=== PATIENT | female | born 1990 | race Caucasian/White ===

== ENCOUNTER 2021-03-01 20:03 | Emergency (ER) | payer SELFPAY ==
[~2021-03-01] VITALS: Ht 167.7 cm; Wt 59.7 kg
[2021-03-01] MEDS ORDERED: DOXY100C2 PO (20:26)
--- NOTE | 2021-03-01 20:26 | ED Integumentary General ---
General Chief Complaint: Skin/Wound Problems Stated Complaint: R ARM INSECT BITE Source: patient Exam Limitations: no limitations History of Present Illness Date Seen by Provider: March 01, 2021 Time Seen by Provider: 20:24 Initial Comments Abscess to the ulnar side proximal aspect forearm on the right. Present for a few days swelling getting worse. No fevers or chills. No known cause. Timing/Duration: just prior to arrival, getting worse Severity: moderate Associated Symptoms: denies symptoms Allergies and Home Medications Allergies Coded Allergies: No Known Drug Allergies (Unverified , 07/10/11) Home Medications Doxycycline Hyclate 100 Mg Capsule, 100 MG PO BID Prescribed by: CATRACHO HUNT on 03/01/212025 Patient Home Medication List Home Medication List Reviewed: Yes Review of Systems Review of Systems Constitutional: see HPI; No chills EENTM: see HPI Respiratory: no symptoms reported Cardiovascular: no symptoms reported Genitourinary: no symptoms reported Musculoskeletal: no symptoms reported Skin: see HPI Psychiatric/Neurological: No Symptoms Reported Physical Exam Vital Signs Capillary Refill : General Appearance: WD/WN, no apparent distress HEENT: PERRL/EOMI, normal ENT inspection Neck: non-tender, full range of motion Respiratory: no respiratory distress, no accessory muscle use Neurologic/Psychiatric: alert, normal mood/affect, oriented x 3 Skin: normal color, warm/dry Skin Problem Location: upper extremities Skin Problem Character: abscess Procedures/Interventions I&D : Blade Size: 11 Progress Anesthetized locally with 0.25 mL of 1% lidocaine without epinephrine. Small incision made with 11 blade scalpel. Small amount of purulent material expressed. Culture collected and sent to lab. Covered with a Band-Aid. Progress/Results/Core Measures Results/Orders My Orders Orders - CATRACHO HUNT APRN Rx-Hydrocodone/Apap 5-325 Mg (Rx-Vicodin (03/01/21 20:30) Ceftriaxone For Im Use (Rocephin For Im (03/01/21 20:30) Lidocaine 1% Inj 20 Ml (Xylocaine 1% Inj (03/01/21 20:30) Dexamethasone Injection (Decadron Inje (03/01/21 20:30) Wound Culture (03/01/21 20:20) Departure Impression Primary Impression: Abscess Disposition: 01 HOME, SELF-CARE Condition: Stable Departure-Patient Inst. Decision time for Depature: 20:24 Referrals: NO,LOCAL PHYSICIAN (PCP/Family) Primary Care Physician Patient Instructions: Skin Abscess Add. Discharge Instructions: 1. Warm compresses to the area. Return to ER for any concerns. Antibiotics as directed. All discharge instructions reviewed with patient and/or family. Voiced understanding. Scripts Doxycycline Hyclate (Doxycycline Hyclate) 100 Mg Capsule 100 MG PO BID, #14 CAP Prov: CATRACHO HUNT APRN 03/01/21 CATRACHO HUNT APRN March 01, 2021 20:26
[2021-03-01] MEDS ORDERED: cefTRIAXone 1,000 MG/2.86 ml vial (IM ONLY) IM SCH (20:30)
[2021-03-01] MEDS ORDERED: LIDOCAINE 1% INJ 20 ML 20 ML VIAL INJ ONE (20:30)
[2021-03-02 03:30] VITALS: BP 123/88
== END 2021-03-01 20:51 | disposition home or self-care (01) ==
LOC: EDUNIT# 20:03 → ER 20:06
DX: L02.413 Cutaneous abscess of right upper limb (principal)
CPT/HCPCS: 87070; 87205; 99284

== ENCOUNTER 2022-12-08 06:02 | Inpatient (IN) | payer MEDICAID ==
[2022-12-08] VITALS (39 sets, daily range): BP systolic 61–136; BP diastolic 38–80
[~2022-12-08] VITALS: Ht 170.2 cm; Wt 82.1 kg
[~2022-12-08 06:02] MED LIST: DOXY100C5 PO
[2022-12-08 08:15] LABS: BASOPHILS % (AUTO) 0 % (0-10); EOSINOPHILS # (AUTO) 0.2 10^3/uL (0.0-0.3); EOSINOPHILS % (AUTO) 2 % (0-10); HEMATOCRIT 34 % (35-52); LYMPHOCYTES # (AUTO) 1.6 10^3/uL (1.0-4.0); LYMPHOCYTES % (AUTO) 17 % (12-44); MEAN CORPUSCULAR HEMOGLOBIN 31 pg (25-34); MEAN CORPUSCULAR HGB CONC 35 g/dL (32-36); MEAN CORPUSCULAR VOLUME 90 fL (80-99); MONOCYTES % (AUTO) 10 % (0-12); NEUTROPHILS # (AUTO) 6.8 10^3/uL (1.8-7.8); NEUTROPHILS % (AUTO) 70 % (42-75); PLATELET COUNT 287 10^3/uL (130-400); WHITE BLOOD COUNT 9.8 10^3/uL (4.3-11.0)
[2022-12-08] MEDS ORDERED: MINERAL OIL 30 ML UDC TOP PRN (08:15)
[2022-12-08] MEDS ORDERED: OXYTOCIN PRE-MIX DRIP 500 ML IV SCH ×2 (08:15→12:15)
--- NOTE | 2022-12-08 08:19 | History & Physical-OB ---
OB - Chief Complaint & HPI Date/Time Date of Admission: Date of Admission: Dec 08, 2022 at 06:02 Date seen by a Provider: Dec 08, 2022 Time Seen by a Provider: 07:50 Chief Complaint/History OB-Reason for Admission/Chief: Induction of Labor Hx : 2 Hx Para: 1 Expected Date of Delivery: Dec 14, 2022 Gestational Age in Weeks: 39 Gestational Age in Days: 1 Indication for induction: maternal distance History of Labs A+, antibody neg, RI. HIV, HepB, RPR NR. GC/chlamydia neg. 1 hour glucola nml. GBS neg. Hep C antibody and viral load positive. Allergies and Home Medications Allergies Coded Allergies: No Known Drug Allergies (Unverified , 07/10/11) Patient Home Medication List Home Medication List Reviewed: Yes Vit No.124/Iron/FA ( Vitamin Tablet) 27 Mg Iron-800 Mcg Tablet, 1 EACH PO DAILY, (Reported) Entered as Reported by: MADDIE WANG on 12/08/22826 Last Action: New Order Discontinued Medications Doxycycline Hyclate (Doxycycline Hyclate) 100 Mg Capsule, 100 MG PO BID Prescribed by: CATRACHO HUNT on 03/01/212025 Last Action: Discontinued OB - History Hx of Present Ultrasounds: Normal mid trimester US Medical Complications: Other (Chronic hep C diagnosed in ) Obstetrical History Hx : 2 Hx Para: 1 Hx # Term Pregnancies: 1 Hx # Pregnancies: 0 Number of Living Children: 1 Hx Termination: No Hx Multiple Gestation: No Hx Ectopic : No Hx Complication: No Hx Induced Hypertens: No Hx Maternal Gestational Diabet: No Hx Hemorrhage: No Delivery History Hx Dystocia: No Hx Forceps Assisted Delivery: No Hx Vacuum Extraction Assisted: No Hx Placenta Abnormality: No Hx Distress: No Hx Large For Gestational Age I: No Hx Small for Gestational Age I: No Hx Section: No Hx Vaginal Delivery Post C-Sec: No Hx Blood Disorders: No Adverse Rxn to Tranfusion: No Patient Past Medical History PMHx: Chronic Hep C SurgHx: Denies Social History/Family History Alcohol Use: Denies Use Recreational Drug Use: No Smoking Cessation: Former smoker Immunizations Rubella: immune RPR/VDRL: Negative GBS Status: Negative HBsAG: Negative OB - Admission Exam Physical Exam HEENT: NCAT Abdomen: Non tender Extremities: Normal Cervical Dilatation: other (1.5) Effacement: 25% Station: -3 Membranes: Intact Heart Rate: 140's Accelerations: Accelerations Present Decelerations: No Decelerations Short Term Variability: Present Board Layer Variability: Average (6-25) Contractions on Admission: None Martinez Scoring Tool (Modified) Dilation (cm): 1-2cm (1) Effacement (%): 0-30% (0) Descent/Station: -3 (0) Cervix Consistency: Medium(1) Cervix Position: Anterior (2) Add 1 point for: Each previous vaginal delivery (1) Martinez Score: 5 OB - Assessment/Plan/Diagnosis Assessment Admission Dx Term intrauterine at 39 weeks gestation Induction of labor planned Chronic Hep C GBS negative Admission Status: Inpatient Order (span 2 midnights) Reason for Inpatient Admission: Labor, delivery and course Plan Plan: Induction Induction Method: per Misoprostol Protocol Reason for Induction: Pt requests induction due to distance from hospital w/ unreliable transport MADDIE WANG MD Dec 08, 2022 08:19
[2022-12-08] MEDS ORDERED: PREN-142 PO (08:27)
[2022-12-08] MEDS: D5 LR IV SOLUTION 1,000 ML IV SCH ×2 (08:40→17:11)
[2022-12-08] MEDS ORDERED: CATHETER FLUSH 10 ML SYR IV SCH ×2 (14:00→22:00)
[2022-12-08] MEDS ORDERED: fentaNYL 2 mcg/ml BUPIVA 0.125 100 ML ONE (19:07)
[2022-12-08] MEDS ORDERED: BUPIVACAINE 0.25% 10 ML (SENSORCAINE) VIAL ONE (19:14)
[2022-12-08] MEDS ORDERED: fentaNYL INJ 100 MCG/2 ML AMP ONE ×2 (19:14→20:36)
[2022-12-08] MEDS ORDERED: diphenhydrAMINE 50 MG/ML INJ (BENADRYL) IV PRN (19:15)
[2022-12-08] MEDS ORDERED: fentaNYL 2 mcg/ml BUPIVA 0.125 100 ML EPI SCH (19:15)
[2022-12-08] MEDS ORDERED: LACTATED RINGERS 1,000 ML IV SCH (19:15)
[2022-12-08] MEDS ORDERED: NALOXONE 0.4 MG/ML 1 ML (NARCAN) VIAL IV PRN ×2 (19:15→21:30)
[2022-12-08] MEDS ORDERED: ONDANSETRON 4 MG/2 ML (SDV) Z0FRAN IV PRN (19:15)
[2022-12-08] MEDS ORDERED: METOCLOPRAMIDE INJ 10 MG/2 ML (REGLAN) ONE (20:23)
[2022-12-08] MEDS ORDERED: NS (IVPB) 50 ML ONE (20:23)
[2022-12-08] MEDS ORDERED: FAMOTIDINE 20MG/2ML IV (PEPCID) ONE (20:23)
[2022-12-08] MEDS ORDERED: ceFAZolin INJECTION 2,000 MG ONE (20:23)
[2022-12-08] MEDS ORDERED: OXYTOCIN PRE-MIX DRIP 500 ML IV ONE ×2 (20:33→21:07)
[2022-12-08] MEDS ORDERED: HYDROmorphone 2 MG/ML VIAL (DILAUDID) ONE (20:34)
[2022-12-08] MEDS ORDERED: KETAMINE HCL 100 MG/ML 5 ML VIAL ONE (20:39)
[2022-12-08] MEDS ORDERED: MIDAZOLAM 2 MG/2 ML (VERSED) VIAL ONE (20:40)
[2022-12-08] MEDS ORDERED: BUPIVACAINE 0.5% 30 ML (SENSORCAINE) VIAL ONE ×2 (20:41→20:42)
--- NOTE | 2022-12-08 21:07 | Diagnostic Imaging Report ---
INDICATION: Rule out foreign body FINDINGS: No radiopaque foreign body. IMPRESSION: No opaque foreign body Dictated by: Dictated on workstation # [id number]
--- NOTE | 2022-12-08 21:18 | Labor Progress Note ---
Labor Progress Note Labor Progress Note Date Seen by Provider: Dec 08, 2022 Time Seen by Provider: 08:20 Subjective: Received call at 0812, about 10-15 minutes after epidural, maternal low BP occurred, and several minutes after that heart tones went down to 60s and not recovering in spite of fluids, ephedrine, position change and oxygen. Called Dr. Montilla for STAT and headed immediately to hospital. Assessment/Plan: Rosangela Villavicencio is a 32 /Para 2 / 1,Gestational Age (wks)39 here for induction of labor. Consult First Press Operator for STAT for extended bradycardia. Vitals - Labs Vital Signs - I&O Vital Signs Date Time Temp Pulse Resp B/P (MAP) Pulse Ox O2 Delivery O2 Flow Rate FiO2 12/08/22 18:55 92 20 121/73 (89) Room Air 12/08/22 18:40 96 20 126/67 (86) Room Air 12/08/22 18:25 95 20 112/64 (80) Room Air 12/08/22 18:11 86 20 116/66 (83) Room Air 12/08/22 17:55 83 20 119/57 (77) Room Air 12/08/22 17:45 93 20 118/61 (80) Room Air 12/08/22 17:30 83 20 128/74 (92) Room Air 12/08/22 17:15 36.3 83 20 132/67 (88) Room Air 12/08/22 15:05 36.6 81 20 117/72 (87) Room Air 12/08/22 14:05 78 20 103/64 (77) Room Air 12/08/22 12:53 36.5 84 20 118/63 (81) Room Air 12/08/22 11:28 36.4 75 20 113/68 (83) Room Air 12/08/22 10:35 81 20 122/58 (79) Room Air 12/08/22 09:40 81 20 136/80 (98) Room Air 12/08/22 08:20 36.9 82 20 98 Room Air Labs Laboratory Tests 12/08/22 07:50: White Blood Count 9.8, Red Blood Count 3.83, Hemoglobin 12.0, Hematocrit 34L, Mean Corpuscular Volume 90, Mean Corpuscular Hemoglobin 31, Mean Corpuscular Hemoglobin Concent 35, Red Cell Distribution Width 12.1, Platelet Count 287, Mean Platelet Volume 10.0, Immature Granulocyte % (Auto) 1, Neutrophils (%) (Auto) 70, Lymphocytes (%) (Auto) 17, Monocytes (%) (Auto) 10, Eosinophils (%) (Auto) 2, Basophils (%) (Auto) 0, Neutrophils # (Auto) 6.8, Lymphocytes # (Auto) 1.6, Monocytes # (Auto) 1.0, Eosinophils # (Auto) 0.2, Basophils # (Auto) 0.0, Immature Granulocyte # (Auto) 0.1 MADDIE WANG MD Dec 08, 2022 21:18
--- NOTE | 2022-12-08 21:19 | Discharge Inst-Women's Service ---
Discharge Inst-Women's Serv Depart Medication/Instructions New, Converted or Re-Newed RX: Transmitted to Pharmacy Final Diagnosis POD 2 PLTCS Problems Reviewed?: Yes Consults/Follow Up Additional Follow Up: Yes Orders/Referrals Dr. Montilla in 7-[address] Pickens in 6 weeks Activity Activity: Activity as Tolerated Driving Instructions: No Driving for 1 Week NO SMOKING: NO SMOKING Nothing Inside Vagina: No Douching, No Leigh, No Tampons Diet Discharge Diet: No Restrictions Symptoms to Report to : Bleeding Excessive, Pain Increased, Fever Over 101 Degrees F, Vaginal Bleeding Increase, Questions/Concerns For Any Problems or Questions: Contact Your Physician Skin/Wound Care Infection Signs and Symptoms: Increased Redness, Foul Odor of Wound, Increased Drainage, Skin Itchy or Has a Rash, Increased Swelling, Temperature Above 101 F Operative Area Clean and Dry: Keep Incision Clean/Dry Stitches/Brittany/Dermabond: Dermabond, Care of Stitches Bathing Instructions: ELYSIA Farr DO Dec 08, 2022 21:19
[2022-12-08] MEDS ORDERED: DOCU100C37 PO (21:20)
[2022-12-08] MEDS ORDERED: ACHD5005 PO (21:20)
[2022-12-08] MEDS ORDERED: IBUP-844 PO (21:20)
[2022-12-08] MEDS ORDERED: TETANUS,DIPTH,PERTUSS P/F (BOOSTRIX) 0.5 ML VIAL IM SCH (21:30)
[2022-12-08] MEDS ORDERED: ONDANSETRON 4 MG/2 ML (SDV) Z0FRAN IVP PRN (21:30)
[2022-12-08] MEDS ORDERED: MEASLES,MUMPS,RUBELLA 1 EA INJ SC SCH (21:30)
[2022-12-08] MEDS: OXYTOCIN PRE-MIX DRIP 500 ML IV SCH (23:00)
[2022-12-08] MEDS: KETOROLAC 30 MG/ML VIAL IV SCH (23:02)
[2022-12-09] MEDS: HYDROcodone/APAP 5 MG/325 MG (LORTAB) TAB PO PRN ×4 (01:07→20:04)
[2022-12-09] MEDS ORDERED: LACTATED RINGERS 1,000 ML IV PRN (02:15)
[2022-12-09] MEDS ORDERED: FAMOTIDINE 20MG/2ML IV (PEPCID) IV ONE (02:15)
[2022-12-09] MEDS ORDERED: METOCLOPRAMIDE INJ 10 MG/2 ML (REGLAN) IV ONE (02:15)
--- NOTE | 2022-12-09 02:32 | OPERATIVE REPORT ---
PREOPERATIVE DIAGNOSES: 1. A 32-year-old at 39 weeks and 1 day gestation. 2. Acute distress. 3. Prolonged bradycardia. POSTOPERATIVE DIAGNOSES: 1. A 32-year-old at 39 weeks and 1 day gestation. 2. Acute distress. 3. Prolonged bradycardia. PROCEDURE: Emergency stat section. SURGEON: ePter Albrecht DO ANESTHESIA: Epidural with mid procedure bolus. ESTIMATED BLOOD LOSS: 600 mL. URINE OUTPUT: 100 mL clear at the end of the procedure. FLUIDS: 1500 mL lactated Ringer's solution. FINDINGS: A live male infant weighing 7 pounds 10 ounces, Apgars of 7 and 8. Grossly normal appearing uterus, bilateral fallopian tubes and ovaries. SPECIMEN SENT: Placenta and cord. INDICATIONS FOR PROCEDURE: This 32-year-old female is a patient who had sought her care with [facility]. I was contacted emergently by Dr. Pickens needing a stat , heart rate had been in the 60s for greater than 5 minutes. Upon my arrival to the hospital, the patient was on the operating room table in the suite with heart rate still in the 50s to 60s. She was rapidly prepped and draped. Anesthesia was not present; however, did have epidural access and she had good pain control; therefore, we proceeded with remainder of the procedure due to the urgency of the situation without a preoperative count. Once she was draped, anesthesia was tested using an Allis clamp and I proceeded with a Pfannenstiel skin incision with a knife and carried to underlying fascia using the knife. The fascial incision extended laterally using blunt traction. The rectus muscles were dissected down the midline using blunt traction, which allowed me to enter the peritoneum, which I entered using blunt traction and extended using blunt traction. I then identified the lower uterine segment and make a low transverse incision through this using a knife until membranes were encountered, at which point I extended the uterine incision with blunt traction. I then elevated the infant's head up to the incision where with gentle fundal pressure, the 's head was elevated up to the incision where the nares and oropharynx were bulb suctioned. Anterior and posterior shoulders were delivered. The was brought to the operative field where the cord was doubly clamped and cut and was handed off to Dr. Pickens who was present for delivery. Cord blood was collected. A 3-vessel cord with intact placenta was delivered spontaneously thereafter. IV Pitocin was initiated to facilitate uterine contraction. At this point, we hold pressure on bleeding from the uterine incision and proceeded with setting up our retraction using an Micah ring retractor within the peritoneal incision, which offers excellent lateral sidewall retraction. I then proceeded with the case as I typically would by closing the uterus using 0 Vicryl suture in a running locked fashion, second layer of imbricating 0 Monocryl was placed. Excellent hemostasis was noted after doing this. At this point, anesthesia arrived and administers more epidural analgesia and IV narcotic pain medication. I then closed the uterus second layer using 0 Monocryl in a running imbricating stitch. The uterus was then placed back within the pelvis and the uterus was copiously irrigated and the pelvis was copiously irrigated the pelvis using normal saline. There was no active bleeding noted from any of my dissection planes. I removed the Micah retractor and placed Interceed over my planes of dissection to prevent postoperative adhesions. I then proceeded with closing the peritoneum using 3-0 Vicryl suture in a running fashion. Rectus muscles were reapproximated using 3-0 Vicryl suture in interrupted fashion. The fascia was reapproximated using 0 Vicryl suture in a running fashion, at which point flat plate x-ray was performed. There was no retained sponges noted on x-ray. I then proceeded with closing the skin using 4-0 Monocryl subcuticular. Dermabond was applied to incision, sterile dressing with adhesive white tape. The patient tolerated the procedure well and was taken to recovery in stable condition. Lap and sponge counts were correct at the end of the procedure. Instrument counts correct as well. Two grams of Ancef were given intraoperatively for infection prophylaxis. Job ID: [id number] DocumentID: [id number] Dictated Date: 12/08/2022 21:15:25 Parts Runner Date: 12/09/2022 02:31:00 Dictated By: PETER ALBRECHT DO
[2022-12-09 03:24] VITALS: BP 113/59
[2022-12-09] MEDS: OXYTOCIN PRE-MIX DRIP 500 ML IV SCH (03:25)
[2022-12-09] MEDS: KETOROLAC 30 MG/ML VIAL IV SCH ×3 (04:02→16:35)
[2022-12-09 04:40] LABS: BASOPHILS % (AUTO) 0 % (0-10); EOSINOPHILS # (AUTO) 0.1 10^3/uL (0.0-0.3); EOSINOPHILS % (AUTO) 1 % (0-10); HEMATOCRIT 30 % (35-52); HEMOGLOBIN 10.2 g/dL (11.5-16.0); LYMPHOCYTES # (AUTO) 1.5 10^3/uL (1.0-4.0); LYMPHOCYTES % (AUTO) 12 % (12-44); MEAN CORPUSCULAR HEMOGLOBIN 31 pg (25-34); MEAN CORPUSCULAR HGB CONC 34 g/dL (32-36); MEAN CORPUSCULAR VOLUME 91 fL (80-99); MONOCYTES # (AUTO) 0.8 10^3/uL (0.0-1.0); MONOCYTES % (AUTO) 6 % (0-12); NEUTROPHILS # (AUTO) 10.3 10^3/uL (1.8-7.8); NEUTROPHILS % (AUTO) 80 % (42-75); PLATELET COUNT 226 10^3/uL (130-400); WHITE BLOOD COUNT 12.8 10^3/uL (4.3-11.0)
--- NOTE | 2022-12-09 07:01 | Postpartum Progress Note ---
Note Note Day # 1 Subjective: Patient is without complaints. Ambulating, voiding. Tolerating a regular diet without nausea or vomiting. Normal lochia. Pain is well controlled with oral pain medications. Breast feeding. Objective: Sitting in bed at time of evaluation, no signs of distress. Physical Exam: General - Alert and oriented, no apparent distress Abdomen - Soft, appropriately tender to palpation, non-distended, fundus firm at umbilicus Extremities - no edema, negative Quinten's bilaterally Incision c/d/i Assessment: POD 1, s/p emergency Acute blood loss anemia Plan: Routine care. Encourage breast feeding. Encourage ambulation. Ferrous sulfate supplementation. Plan for discharge tomorrow. Vitals - Labs Vital Signs - I&O Vital Signs Date Time Temp Pulse Resp B/P (MAP) Pulse Ox O2 Delivery O2 Flow Rate FiO2 12/09/22 03:24 36.6 86 22 113/59 (77) 98 Room Air 12/08/22 23:13 37.0 91 18 119/60 (79) 99 Room Air 12/08/22 22:38 Room Air 12/08/22 22:15 35.8 12 97/53 (68) 97 Room Air 12/08/22 22:15 Room Air 12/08/22 22:00 Room Air 12/08/22 22:00 36.0 12 100/49 (66) 96 Room Air 12/08/22 21:45 Room Air 12/08/22 21:45 35.5 16 94/57 (69) 98 Room Air 12/08/22 21:30 36.2 21 94/52 (66) 95 Room Air 12/08/22 21:30 Room Air 12/08/22 21:15 Room Air 12/08/22 21:15 36.3 22 82/41 (55) 95 Room Air 12/08/22 20:20 79 116/69 (85) 100 Room Air 12/08/22 20:16 74 101/53 (69) Room Air 12/08/22 20:15 85 102/55 (71) 100 Room Air 12/08/22 20:11 82 100 Room Air 12/08/22 20:08 85 91/55 (67) 12/08/22 20:06 76 61/38 (46) 97 Room Air 12/08/22 20:03 110 85/53 (64) Room Air 12/08/22 19:59 101 89/51 (64) 98 Room Air 12/08/22 19:57 108 86/54 (65) 99 Room Air 12/08/22 19:54 89 98/55 (69) 12/08/22 19:51 121 95/50 (65) 98 Room Air 12/08/22 19:47 91 99/64 (76) Room Air 12/08/22 19:44 101 106/60 (75) 99 Room Air 12/08/22 19:41 104 103/63 (76) 99 Room Air 12/08/22 19:35 84 113/55 (74) Room Air 12/08/22 19:32 80 125/65 (85) 99 Room Air 12/08/22 19:29 79 132/63 (86) 12/08/22 19:26 81 126/58 (80) 99 Room Air 12/08/22 19:23 36.2 79 18 113/56 (75) 100 Room Air 12/08/22 18:55 92 20 121/73 (89) Room Air 12/08/22 18:40 96 20 126/67 (86) Room Air 12/08/22 18:25 95 20 112/64 (80) Room Air 12/08/22 18:11 86 20 116/66 (83) Room Air 12/08/22 17:55 83 20 119/57 (77) Room Air 12/08/22 17:45 93 20 118/61 (80) Room Air 12/08/22 17:30 83 20 128/74 (92) Room Air 12/08/22 17:15 36.3 83 20 132/67 (88) Room Air 12/08/22 15:05 36.6 81 20 117/72 (87) Room Air 12/08/22 14:05 78 20 103/64 (77) Room Air 12/08/22 12:53 36.5 84 20 118/63 (81) Room Air 12/08/22 11:28 36.4 75 20 113/68 (83) Room Air 12/08/22 10:35 81 20 122/58 (79) Room Air 12/08/22 09:40 81 20 136/80 (98) Room Air 12/08/22 08:20 36.9 82 20 98 Room Air I & O 12/09/22 07:00 Intake Total 3162 ml Output Total 525 ml Balance 2637 ml Labs Laboratory Tests 12/08/22 07:50: White Blood Count 9.8, Red Blood Count 3.83, Hemoglobin 12.0, Hematocrit 34L, Mean Corpuscular Volume 90, Mean Corpuscular Hemoglobin 31, Mean Corpuscular Hemoglobin Concent 35, Red Cell Distribution Width 12.1, Platelet Count 287, Mean Platelet Volume 10.0, Immature Granulocyte % (Auto) 1, Neutrophils (%) (Auto) 70, Lymphocytes (%) (Auto) 17, Monocytes (%) (Auto) 10, Eosinophils (%) (Auto) 2, Basophils (%) (Auto) 0, Neutrophils # (Auto) 6.8, Lymphocytes # (Auto) 1.6, Monocytes # (Auto) 1.0, Eosinophils # (Auto) 0.2, Basophils # (Auto) 0.0, Immature Granulocyte # (Auto) 0.1, Syphilis Serology Non-Reactive 12/09/22 04:07: White Blood Count 12.8H, Red Blood Count 3.29L, Hemoglobin 10.2L, Hematocrit 30L , Mean Corpuscular Volume 91, Mean Corpuscular Hemoglobin 31, Mean Corpuscular Hemoglobin Concent 34, Red Cell Distribution Width 12.0, Platelet Count 226, Mean Platelet Volume 10.0, Immature Granulocyte % (Auto) 1, Neutrophils (%) (Auto) 80H, Lymphocytes (%) (Auto) 12, Monocytes (%) (Auto) 6, Eosinophils (%) (Auto) 1, Basophils (%) (Auto) 0, Neutrophils # (Auto) 10.3H, Lymphocytes # (Auto) 1.5, Monocytes # (Auto) 0.8, Eosinophils # (Auto) 0.1, Basophils # (Auto) 0.0, Immature Granulocyte # (Auto) 0.1 TYE ARCHER Dec 09, 2022 07:01
[2022-12-09] MEDS: DOCUSATE SODIUM 100 MG (COLACE) CAP PO SCH ×2 (09:20→20:04)
[2022-12-09 13:00] VITALS: BP 119/59
--- NOTE | 2022-12-09 13:48 | Anesthesia-Regional Post-Op ---
Regional Patient Condition Mental Status: Alert, Oriented x3 Circulation: Same as Pre-Op Headache: Absent Sensation: Full Recovery Motor Block: Absent Post Op Complications Complications None Follow Up Care/Instructions Patient Instructions None needed. Anesthesia/Patient Condition Patient is doing well, no complaints, stable vital signs, no apparent adverse anesthesia problems. No complications reported per nursing. D/C home per [facility] [place] Criteria: Yes ROMANA GARCIA CRNA Dec 09, 2022 13:48
[2022-12-09 20:00] VITALS: BP 127/70
[2022-12-09] MEDS ORDERED: diphenhydrAMINE 25 MG TAB (BENADRYL) PO PRN (20:30)
[2022-12-09] MEDS ORDERED: diphenhydrAMINE 25 MG TAB (BENADRYL) PO ONE (20:31)
[2022-12-09] MEDS: IBUPROFEN 600 MG (MOTRIN) TAB PO SCH (23:12)
[2022-12-10] MEDS: diphenhydrAMINE 25 MG TAB (BENADRYL) PO PRN ×2 (00:36→04:23)
[2022-12-10] MEDS: HYDROcodone/APAP 5 MG/325 MG (LORTAB) TAB PO PRN (02:15)
[2022-12-10 02:21] VITALS: BP 111/58
[2022-12-10] MEDS: IBUPROFEN 600 MG (MOTRIN) TAB PO SCH ×2 (04:23→09:15)
[2022-12-10] MEDS ORDERED: diphenhydrAMINE 25 MG TAB (BENADRYL) PO ONE ×2 (06:10→06:15)
[2022-12-10] MEDS ORDERED: FAMOTIDINE 20 MG (PEPCID) TABLET PO ONE (06:15)
[2022-12-10] MEDS ORDERED: FAMOTIDINE 20 MG (PEPCID) TABLET ONE (06:20)
--- NOTE | 2022-12-10 08:14 | Postpartum Progress Note ---
Note Note Day # 1 Subjective: Patient is without complaints. Ambulating, voiding. Tolerating a regular diet without nausea or vomiting. Normal lochia. Pain is well controlled with oral pain medications. Physical Exam: General - Alert and oriented, no apparent distress Abdomen - Soft, appropriately tender to palpation, non-distended, fundus firm at umbilicus; incision c/d/i Extremities - no edema, negative Quinten's bilaterally Assessment: Post- day # 1, status post STAT PLTCS Recovering well, hemodynamically stable Acute blood loss anemia Plan: Routine care. Encourage breast feeding. Encourage ambulation. Ferrous sulfate supplementation. Plan for discharge today Vitals - Labs Vital Signs - I&O Vital Signs Date Time Temp Pulse Resp B/P (MAP) Pulse Ox O2 Delivery O2 Flow Rate FiO2 12/10/22 02:21 36.6 83 16 111/58 (75) 98 Room Air 12/09/22 20:00 36.4 94 18 127/70 (89) 99 Room Air 12/09/22 13:00 36.5 95 18 119/59 (79) 98 Room Air I & O 12/10/22 07:00 Intake Total 1100 ml Output Total 750 ml Balance 350 ml SOURAV MONTALVO APRN Dec 10, 2022 08:14
[2022-12-10] MEDS: DOCUSATE SODIUM 100 MG (COLACE) CAP PO SCH (09:14)
[2022-12-10] MEDS ORDERED: PRD20T PO (09:16)
[2022-12-10 09:18] VITALS: BP 129/81
--- NOTE | 2022-12-10 09:19 | Progress Note ---
Subjective Subjective/Events-last exam Patient report urticarial rash. Reports she has had during the but has worsened since delivery. Hives on eye, arms, hands, abdomen - very pruritic. Benadryl not helping. Objective Exam Last Set of Vital Signs Vital Signs Date Time Temp Pulse Resp B/P (MAP) Pulse Ox O2 Delivery O2 Flow Rate FiO2 12/10/22 02:21 36.6 83 16 111/58 (75) 98 Room Air Capillary Refill : Less Than 3 SecondsLess Than 3 Seconds I&O Intake and Output 12/10/22 00:00 Intake Total 1600 ml Output Total 150 ml Balance 1450 ml Intake Oral 600 ml IV Total 1000 ml Output Urine Total 150 ml Blood Loss Quantification Method 600 ml # Voids 4 General: Alert, Oriented X3, Cooperative Skin: Other (urticarial rash affecting R eyelid, arms, palms, abdomen ) Assessment/Plan Assessment/Plan Assessment & Plan Urticarial rash consistent with PUPPP - rx for prednisone 20mg BID x5d IRAM VIEYRA DO Dec 10, 2022 09:19
[2022-12-10] MEDS ORDERED: predniSONE 20 MG TAB PO NR (09:30)
--- NOTE | 2022-12-10 09:41 | NB Circumcision Procedure Note ---
Circumcision Procedure Note Preoperative Diagnosis Pre-op Diagnosis Redundant foreskin Date of Service: Dec 10, 2022 Risk/Time Out Risk/Time Out Risks, benefits, indications and contraindications of circumcision were discussed with parents (s) or legal guardian and they desire to proceed. Time out was performed, verifying that written informed consent for circumcision is on the chart, the patient is the one specified on the consent, and that he possesses the required anatomy for circumcision. The was secured on an board for his protection. The penis was inspected and pertinent anatomy was found to be normal. Oral sucrose provided: Yes Local Anesthetic Penis was cleansed with: Betadine Nerve Block or SubQ Ring Dorsal Penile Nerve Block A total of 0.8 mL of 1% lidocaine without epinephrine was injected at the 10 and 2 o'clock positions at the base of the penis. (0.4 mL at each site) Procedure Procedure Note: Once anesthesia was administered, hemostats were attached to the foreskin for traction. Adhesions were bluntly lysed. After lifting the foreskin away from the glans, a straight hemostat was aligned parallel to the penile shaft and clamped at the 12 o'clock position creating a hemostatic area to the dorsal prepuce. A dorsal slit was then created by sharp dissection through the crushed tissue. The foreskin was degloved off the glans and remaining adhesions were lysed with traction. The urethral meatus was inspected and found to have normal anatomy. Circumcision Technique Technique Gomco Technique Gomco was placed over the glans and the foreskin was pulled over the gray. The dorsal slit was reapproximated (safety pin may have been used). The Gomco gray and foreskin were inserted through the aperture of the Gomco body. Correct placement of the Gomco onto the foreskin was confirmed. The clamp was then tightened completely for Hemostasis. The foreskin was then sharply excised. The Gomco was unclamped and removed. Hemostasis was assured. A petroleum jelly and gauze pressure dressing was applied to the glans. Gray Size: 1.3 Post Procedure Post Procedure Note: Baby tolerated the procedure well without complications. The betadine was washed off the baby's skin. He was diapered and returned to his parent(s)/caregiver(s). They were given verbal and written instructions on proper care of the circumcised penis. Dressing: Vaseline Gauze Encountered Complications none Estimated Blood Loss Bleeding: Minimal Less than 1 mL: Yes Post-op Diagnosis/Impression Normal circumcised penis. IRAM VIEYRA DO Dec 10, 2022 09:41
[2022-12-10] MEDS ORDERED: HYDROcodone/APAP 5 MG/325 MG (LORTAB) TAB ONE (09:42)
[2022-12-10] MEDS ORDERED: HYDROcodone/APAP 5 MG/325 MG (LORTAB) TAB PO PRN (09:45)
== END 2022-12-10 12:50 | disposition home or self-care (01) | DRG 787 ==
LOC: LDRP 06:02 → WS 22:19
PROVIDERS: ADMIT Family Medicine; ATTEND Family Medicine
PROC: 10D00Z1 Extraction of Products of Conception, Low, Open Approach (ICD-10-PCS; principal; 2022-12-08 20:20)
DX: O76 Abnormality in fetal heart rate and rhythm complicating labor and delivery (principal); D62 Acute posthemorrhagic anemia; O98.42 Viral hepatitis complicating childbirth; Z3A.39 39 weeks gestation of pregnancy; Z37.0 Single live birth; B18.2 Chronic viral hepatitis C; O90.81 Anemia of the puerperium
CPT/HCPCS: 36415; 74018; 85025; 86780; 86850; 86900; 86901; 94664